=== PATIENT | female | born 1970 | race Caucasian/White ===

== ENCOUNTER 2017-05-15 10:13 | Emergency (ER) | payer BC ==
[2017-05-15] MEDS ORDERED: NS 0.9% 1000 ML* 1,000 ML IV ONE (10:57)
[2017-05-15 11:01] LABS: Urine Appearance Clear; Urine Blood 2+ (Negative); Urine Color Yellow; Urine Ketones Negative (Negative); Urine Protein Negative (Negative); Urine Specific Gravity 1.021 (1.010-1.030); Urine Urobilinogen Negative (Negative)
[2017-05-15 11:37] LABS: ABS Basophils 0 10^3/ul (0-0.2); ABS Eosinophils 0 10^3/ul (0-0.6); ABS Lymphocytes 0.8 10^3/ul (1.0-4.8); ABS Monocytes 0.3 10^3/ul (0-0.8); ABS Neutrophils 8.5 10^3/ul (1.5-7.7); ABS Nucleated RBC 0 10^3/ul; Eosinophil % 0.1 % (0-6); Hematocrit 41 % (35-47); Hemoglobin 14.2 g/dl (12.0-16.0); Lymphocyte % 8.4 % (25-47); Mean Corpuscular HGB Conc 34 g/dl (31-36); Mean Corpuscular Hemoglobin 31 pg (27-31); Mean Corpuscular Volume 89 fL (80-97); Mean Platelet Volume 9 um3 (7.4-10.4); Nucleated Red Blood Cells % 0.1; Platelet Count 200 10^3/ul (150-450); Red Blood Count 4.63 10^6/ul (4.0-5.4); Red Cell Distribution Width 14 % (10.5-15); White Blood Count 9.6 10^3/ul (3.5-10.8)
[2017-05-15 11:55] LABS: EGFR Non-African American 86.5 (>60)
--- NOTE | 2017-05-15 13:21 | RAD ---
INDICATION: Left-sided pelvic pain. COMPARISON: There are no prior studies available for comparison. TECHNIQUE: Multiple real-time transvaginal and transabdominal images of the pelvis were obtained. FINDINGS: The uterus is normal in size, shape and echogenicity. The uterus measured 8.5 x 4.3 x 6.1 cm. The endometrial echo measured 0.3 cm in thickness. There are couple hypodense lesions with the uterus. The largest measures 1.8 x 1.3 1.5 cm in size consistent with small leiomyomas. The right ovary measured 2.5 x 1.5 x 1.6 cm. The left ovary measured 2.3 x 0.8 x 1.5 cm. There is a small 1.4 x 1.0 x 0.9 cm follicular cyst within the right ovary. The Doppler ultrasound evaluation of both ovaries is limited with picking up clean Doppler signals in either ovary. There is a small amount of free intraperitoneal fluid in the cul-de-sac. IMPRESSION: 1. THE DOPPLER EVALUATION OF THE OVARIES IS VERY LIMITED ON BOTH SIDES. THE OVARIES ARE NORMAL IN SIZE. 2. SMALL LEIOMYOMAS. 3. SMALL AMOUNT OF FREE INTRAPERITONEAL FLUID
[2017-05-15] MEDS ORDERED: Iohexol 300* (CONTRAST) 10 ML SDV IV ONE (14:00)
--- NOTE | 2017-05-15 14:39 | RAD ---
CLINICAL HISTORY: Left lower quadrant pain COMPARISON: None TECHNIQUE: Multiple contiguous axial CT scans were obtained of the abdomen and pelvis, without intravenous contrast enhancement. Coronal and sagittal multiplanar reformations are submitted for review. Oral contrast was not administered. FINDINGS: The study is limited by the lack of intravenous contrast. This limits evaluation of the solid organs and vasculature. LUNG BASES: The lung bases are clear. LIVER: There is a 1.5 cm low-attenuation lesion of the right lobe of liver centered on axial image 62, measuring 40 Hounsfield units. BILE DUCTS: There is no intrahepatic or extrahepatic biliary dilatation. GALLBLADDER: The gallbladder is normal, without pericholecystic inflammatory change. PANCREAS: The pancreas is normal, without mass or ductal dilatation. SPLEEN: Normal in size and appearance. UPPER GI TRACT: Evaluation of the gastrointestinal tract is limited by incomplete gastric distention. The upper GI tract is unremarkable. SMALL BOWEL AND MESENTERY: The small bowel is normal in contour, course, and caliber. There is no obstruction or dilatation. COLON: There is mucosal thickening with stranding of the pericolic fat along the descending colon. ADRENALS: Normal bilaterally. KIDNEYS: A simple parapelvic cyst is noted on the right. There is no appreciable hydronephrosis or nephrolithiasis. BLADDER: The bladder is incompletely distended but is grossly normal. PELVIC ORGANS: The uterus and adnexa are grossly normal for technique. There is effacement of fluid within the pelvic cul-de-sac. AORTA: The aorta is normal. IVC: Unremarkable LYMPH NODES: There is no lymphadenopathy by size criteria. ABDOMINAL WALL: There is no evidence for abdominal wall hernia. BONES AND SOFT TISSUES: Degenerative changes are noted of the spine. OTHER: None IMPRESSION: 1. MUCOSAL THICKENING AND INFLAMMATORY CHANGE OF THE DESCENDING COLON SUGGESTIVE OF COLITIS. 2. TRACE AMOUNT OF FLUID WITHIN THE PELVIC CUL-DE-SAC. 3. THERE IS A 1.5 CM LOW-ATTENUATION LESION OF THE RIGHT LOBE OF LIVER. THIS IS INCOMPLETELY EVALUATED ON THE CURRENT EXAMINATION. RECOMMEND CORRELATION WITH MULTIPHASE CONTRAST-ENHANCED LIVER PROTOCOL CT, CONTRAST-ENHANCED MRI OF THE ABDOMEN, OR ULTRASOUND OF THE ABDOMEN IN THE NONACUTE SETTING.
[2017-05-15 15:15] VITALS: BP 147/72
--- NOTE | 2017-05-16 09:10 | ED ---
Progress - Progress Note Progress Note: Pt's stool occult blood test is (+). Pt was dx'd w/ colitis and pt was offered medication. Per note, she declined and report indicates she is pt of Dr. Porras and she plans to f/u there. No concern for acute GI bleed at time of visit or d/ c. No change in plan at this time. Course/Dx - Diagnoses Provider Diagnoses: Abdominal pain
--- NOTE | 2017-05-16 16:44 | ED ---
Michael Moreira Angela, scribed for Juan Jane MD on 05/15/17 at 1055 . Abdominal Pain/Female - HPI Summary HPI Summary: This pt is a 47 y/o female presenting to [facility] c/o lower abd pain that began at 10:30 this morning. Pt notes she also had episodes of diarrhea with bloody stools. She describes a small amount of right red blood. Pt rates her pain 4 or 5 out of 10 in severity. She denies dysuria, flank pain, nausea, vomiting. PMHx: kidney stones, IBS. Pt had an US on 04/15/[address] Cotton that resulted negative. - History of Current Complaint Chief Complaint: EDAbdPain Stated Complaint: ABD PAIN Time Seen by Provider: 05/15/17 10:34 Hx Obtained From: Patient Onset/Duration: Lasting Hours, Still Present Timing: Hours Severity Currently: Moderate Pain Intensity: 4 Pain Scale Used: 0-10 Numeric Location: Other - pelvic Radiates: No Aggravating Factor(s): Nothing Alleviating Factor(s): Nothing Associated Signs and Symptoms: Positive: Blood in Stool, Diarrhea. Negative: Urinary Symptoms, Nausea, Vomiting Allergies/Adverse Reactions: Allergies Allergy/AdvReac Type Severity Reaction Status Date / Time Iodine and Iodide Containing Allergy Intermediate Hives Verified 05/15/17 14:19 Produc MS Erythromycin AdvReac Severe Nausea And Verified 05/15/17 14:18 [Erythromycin] Vomiting PMH/Surg Hx/FS Hx/Imm Hx Endocrine/Hematology History: Reports: Hx Anemia - WITH FREQUENT PERIODS History: Reports: Hx Kidney Stones - PAST NONE KNOWN NOW Sensory History: Reports: Hx Contacts or Glasses - DRIVING ONLY Opthamlomology History: Reports: Hx Contacts or Glasses - DRIVING ONLY Psychiatric History: Reports: Hx Anxiety - OK ON DAILY MED Denies: Hx Depression - Cancer History Hx Chemotherapy: No Hx Radiation Therapy: Yes - [facility] - Surgical History Surgery Procedure, Year, and Place: 1973 RT EAR REPAIR NO OPENING [facility] Hx Anesthesia Reactions: No Infectious Disease History: No Infectious Disease History: Denies: Traveled Outside the [place] in Last 30 Days - Family History Family History: Negative FHx of kidney stones. - Social History Alcohol Use: None Substance Use Type: Reports: None Smoking Status (MU): Never Smoked Tobacco Review of Systems Negative: Fever, Chills Gastrointestinal: Other - bloody stools Positive: Abdominal Pain, Diarrhea. Negative: Vomiting, Nausea Negative: dysuria, flank pain, hematuria Skin: Negative Neurological: Negative All Other Systems Reviewed And Are Negative: Yes Physical Exam - Summary Physical Exam Summary: VITAL SIGNS: Reviewed. GENERAL: Patient is a well-developed and nourished female who is lying comfortable in the stretcher. Patient is not in any acute respiratory distress. HEAD AND FACE: Normocephalic and atraumatic. EYES: PERRLA, EOMI x 2, No injected conjunctiva. EARS: Hearing grossly intact. Ear canals and tympanic membranes are WNL. MOUTH: Oropharynx within normal limits. NECK: Supple, trachea is midline, no adenopathy, no JVD. CHEST: Symmetric, no tenderness at palpation LUNGS: Clear to auscultation bilaterally. No wheezing or crackles. CVS: RRR, S1 and S2 present, no murmurs or gallops appreciated. ABDOMEN: Soft. No signs of distention. Positive bowel sounds. No rebound no guarding, and no masses palpated. No abdominal bruit or pulsations. Pt has left pelvis area tenderness. RECTAL EXAM: EXTREMITIES: FROM in all major joints, no edema, no cyanosis or clubbing. NEURO: Alert and oriented x 3. No acute neurological deficits. Speech is normal. SKIN: Dry and warm Triage Information Reviewed: Yes Vital Signs On Initial Exam: Initial Vitals Temp Pulse Resp BP Pulse Ox 98.5 F 108 17 154/78 96 05/15/17 10:26 05/15/17 10:26 05/15/17 10:26 05/15/17 10:26 05/15/17 10:26 Vital Signs Reviewed: Yes Diagnostics - Vital Signs Vital Signs Temp Pulse Resp BP Pulse Ox 05/15/17 10:26 98.5 F 108 17 154/78 96 - Laboratory Result Diagrams: 05/15/17 11:20 05/15/17 11:20 Lab Statement: Any lab studies that have been ordered have been reviewed, and results considered in the medical decision making process. - CT Abdomen/Pelvis CT CT Interpretation: Positive (See Comments) - IMPRESSION: 1. Mucosal thickening and inflammatory change of the descending colon suggestive of colitis. 2. Trace amount of fluid within the pelvic cul-de-sac. 3. There is a 1.5 cm low- attenuation lesion of the right lober of liver. This is incompletely evaluated on the current examination. Recommend correlation with multiphase contrast- enhanced liver protocol CT, contrast-enhanced MRI of the abdomen, or ultrasound of the abdomen in the nonacute setting. Dr. Jane has reviewed this radiology report . CT Interpretation Completed By: Radiologist - Ultrasound No standard instances Ultrasound Interpretation: Positive (See Comments) - US Transvaginal IMPRESSION : 1. The doppler evaluatoin of the ovaries is very limited on both sides. The ovaries are normal in size. 2. Small leiomyomas. 3. Small amount of free intraperitoneal fluid. Dr. Jane has reviewed the radiology report. Ultrasound Interpretation Completed By: Radiologist Abdominal Pain Fem Course/Dx - Course Course Of Treatment: This pt is a 47 y/o female presenting to [facility] c/o lower abd pain that began at 10:30 this morning. Pt notes she also had episodes of diarrhea with bloody stools. She describes a small amount of right red blood. Pt rates her pain 4 or 5 out of 10 in severity. She denies dysuria, flank pain , nausea, vomiting. PMHx: kidney stones, IBS. Pt had an US on 04/15/[address] Cotton that resulted negative. Test results without any significant abnormalities. Urinalysis is negative for UTI. Since the pt was complaining of left pelvic pain, I decide to do pelvic US. Pelvic US: 1. The doppler evaluatoin of the ovaries is very limited on both sides. The ovaries are normal in size. 2. Small leiomyomas. 3. Small amount of free intraperitoneal fluid. Since the ultrasound report is normal, I decided to do an abdomen/pelvis CT to rule out kidney stones or diverticulitis. Abdomen/pelvis CT: 1. Mucosal thickening and inflammatory change of the descending colon suggestive of colitis. 2. Trace amount of fluid within the pelvic cul-de-sac. 3. There is a 1.5 cm low-attenuation lesion of the right lober of liver. This is incompletely evaluated on the current examination. Recommend correlation with multiphase contrast-enhanced liver protocol CT, contrast-enhanced MRI of the abdomen, or ultrasound of the abdomen in the nonacute setting. The CT shows the pt has colitis. I offered the pt pain medications and she declines. Pt will follow up with GI and she has already been established with Dr. Porras. Therefore she will be discharged to home with follow up from Dr. Porras. Pt is hemodynamically stable, alert and oriented x3. Pt is ambulating out of the ED. - Diagnoses Provider Diagnoses: Abdominal pain Discharge - Discharge Plan Condition: Stable Disposition: HOME Patient Education Materials: Abdominal Pain (ED) Referrals: Gibson Chicas MD [Primary Care Provider] - 3 Days Additional Instructions: Please follow up with your primary care provider. RETURN TO THE ED FOR ANY WORSENING SYMPTOMS. The documentation as recorded by the Michael john Angela accurately reflects the service I personally performed and the decisions made by Buck miles Walter, MD.
== END 2017-05-15 15:13 | disposition home or self-care (01) ==
LOC: ED 10:13
DX: R10.9 Unspecified abdominal pain (principal)
CPT/HCPCS: 36415; 74176; 76830; 80053; 81003; 81015; 82272; 83690; 84702; 85025; 86140; 87086; 99283

== ENCOUNTER 2018-05-17 15:11 | Emergency (ER) | payer BC ==
[2018-05-17] MEDS ORDERED: Ondansetron INJ* 2 MG/ML VIAL IV ONE (15:40)
[2018-05-17] MEDS ORDERED: NS 0.9% 1000 ML** 2,000 ML IV ONE (15:40)
[2018-05-17] MEDS ORDERED: Morphine INJ* 10 MG/ML 1 ML CARPUJECT IV ONE (15:40)
[2018-05-17] MEDS ORDERED: Ketorolac INJ* 30 MG/ML 1 ML VIAL IV ONE (15:40)
[2018-05-17] MEDS ORDERED: Ketorolac INJ* 30 MG/ML 1 ML VIAL ONE (15:45)
[2018-05-17] MEDS ORDERED: Ondansetron INJ* 2 MG/ML VIAL ONE (15:45)
[2018-05-17] MEDS ORDERED: Morphine VIAL* 4 MG/ML VIAL (1 ml vial) ONE (15:46)
--- NOTE | 2018-05-17 15:46 | ED ---
Abdominal Pain/Female - HPI Summary HPI Summary: 48 year old F presenting to [facility] from [facility] accompanied by daughter's female best friend who is an DEVELOPMENT ARCHITECT, and later her , with a chief complaint of right flank pain radiating to RLQ for one week, worse since this morning. The patient rates the pain 10/10 in severity. Symptoms aggravated by nothing. Symptoms alleviated by nothing. Patient reports burning with urination , vomiting undigested food x1, nausea. Patient denies fever. 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 Patient was dx with UTI at [facility] and sent to ED for pain control. Patient has hx kidney stones, always on the left side per pt. Her last kidney stone was a couple of years ago. Patient has surgical hx stent for her kidney stones. Patient sees Dr. Cotton, urology. She had US done in February 2018 in his office and states he identified renal calculi on the left, but did not state there were any renal calculi on the right. Pt believes she forms uric acid stones. Patient is in menopause. Vital signs at triage: HR 111 bpm, BP 138/97. - History of Current Complaint Chief Complaint: EDFlankPain Stated Complaint: FLANK PAIN Hx Obtained From: Patient Hx Last Menstrual Period: patient is in menopause Onset/Duration: Lasting Weeks - 1, Still Present, Worse Since - this morning Timing: Constant Severity Initially: Mild Severity Currently: Severe Pain Intensity: 10 Pain Scale Used: 0-10 Numeric Location: Flank - right Radiates: Yes Radiates to: RLQ Character: Sharp Aggravating Factor(s): Nothing Alleviating Factor(s): Nothing Associated Signs and Symptoms: Positive: Other: - burning with urination, vomiting undigested food x1, nausea. Negative: Fever Allergies/Adverse Reactions: Allergies Allergy/AdvReac Type Severity Reaction Status Date / Time Iodine and Iodide Containing Allergy Intermediate Hives Verified 05/17/18 15:43 Produc erythromycin base Allergy Nausea And Verified 05/17/18 15:43 Vomiting PMH/Surg Hx/FS Hx/Imm Hx Previously Healthy: No Endocrine/Hematology History: Reports: Hx Thyroid Disease, Hx Anemia Denies: Hx Diabetes Cardiovascular History: Denies: Hx Hypertension History: Reports: Hx Kidney Stones Sensory History: Reports: Hx Contacts or Glasses - DRIVING ONLY Opthamlomology History: Reports: Hx Contacts or Glasses - DRIVING ONLY Psychiatric History: Reports: Hx Anxiety, Hx Depression - Cancer History Cancer Type, Location and Year: [facility], 2001, Dr. Engel Hx Chemotherapy: No Hx Radiation Therapy: Yes - [facility] - Surgical History Surgery Procedure, Year, and Place: 1973 RT EAR REPAIR NO OPENING [facility]. Kidney stone stent Hx Anesthesia Reactions: No Infectious Disease History: No Infectious Disease History: Denies: Traveled Outside the [place] in Last 30 Days - Family History Family History: Negative FHx of kidney stones, kidney failure, dialysis - Social History Lives: With Family Alcohol Use: None Hx Substance Use: No Substance Use Type: Reports: None Hx Tobacco Use: No Smoking Status (MU): Never Smoked Tobacco Review of Systems Negative: Fever Cardiovascular: Negative Respiratory: Negative Positive: Vomiting, Nausea Positive: burning, dysuria, flank pain - right Musculoskeletal: Negative Skin: Negative Neurological: Negative Psychological: Normal All Other Systems Reviewed And Are Negative: Yes Physical Exam - Summary Physical Exam Summary: Appearance: Well-appearing, moderate pain distress, well-nourished Skin: Warm, color reflects adequate perfusion, dry Head: Normal Head/Face inspection, atraumatic Eyes: Conjunctiva clear ENT: Normal inspection Neck: Supple, no nodes, no JVD Respiratory: Lungs clear, normal breath sounds, no respiratory distress Cardio: RRR, No murmur, pulses normal, brisk capillary refill Abdomen: Soft, nondistended, no masses. R CVAT, RLQ on palpation, no guarding, no rebound Bowel sounds: Present Musculoskeletal: Strength Intact/ROM intact, no calf tenderness, no edema. Psychological: Normal Neuro: Alert, muscle tone normal, no focal deficit Triage Information Reviewed: Yes Vital Signs On Initial Exam: Initial Vitals Temp Pulse Resp BP Pulse Ox 98.9 F 111 20 138/97 99 05/17/18 15:18 05/17/18 15:18 05/17/18 15:18 05/17/18 15:18 05/17/18 15:18 Vital Signs Reviewed: Yes Diagnostics - Vital Signs Vital Signs Temp Pulse Resp BP Pulse Ox 05/17/18 15:18 98.9 F 111 20 138/97 99 - Laboratory Result Diagrams: 05/17/18 16:24 05/17/18 16:24 Lab Statement: Any lab studies that have been ordered have been reviewed, and results considered in the medical decision making process. - Radiology Abdomen Radiology Interpretation Completed By: ED Physician Summary of Radiographic Findings: No definite renal calculi on the right. Large amount of stool. Pending official report. - Ultrasound No standard instances Ultrasound Interpretation Completed By: Radiologist Summary of Ultrasound Findings: MILD TO MODERATE RIGHT HYDRONEPHROSIS. ED physician has reviewed this report. Re-Evaluation - Re-Evaluation First Eval Re-Evaluation Time: 16:40 Change: Improved Comment: Patient's pain is controlled. Patient's face is flushed. She is updated on her US results. Second Eval Re-Evaluation Time: 18:10 Change: Unchanged Comment: Discussed disposition plan. Told her that we are waiting for Dr. Cotton to call back. Third Eval Re-Evaluation Time: 18:23 Change: Improved Comment: Patient's pain is controlled. She is ready to go home. She agrees to see Dr. Cotton tomorrow in his office. She declines the prescription for Percocet. Fourth Eval Re-Evaluation Time: 21:54 Change: Improved Comment: Patient's pain is relieved. She thinks she may have passed stone because pain is so much better.Did not strain her urine, so did not recover a stone, but thinks she saw it in the toilet. With the next time voiding as I waited outside her room, pt thought she saw 3 dark flecks in the toilet, which I also saw. Uncertain if they were renal calculi, as they were so small. Abdominal Pain Fem Course/Dx - Course Course Of Treatment: Reviewed nurses note. Patient medications reviewed this visit. Allergies noted. High blood pressure noted. Renal US showed MILD TO MODERATE RIGHT HYDRONEPHROSIS. In ED course, patient was given Toradol, Morphine , and Zofran. Per Dr. Cotton, patient's urologist, patient can be discharged with ibuprofen and Percocet. He recommends getting KUB and urine for culture. He will see patient in office tomorrow 0800 with full bladder. Patient will be discharged home with follow up from Dr. Cotton, urology, in his office tomorrow. Patient was instructed to return to ED for new or worsening symptoms. She is agreeable with this plan. - Diagnoses Differential Diagnosis: Positive: Appendicitis, Constipation, Gall Bladder Disease, Pancreatitis, Renal Colic, Urinary Tract Infection Provider Diagnoses: Renal calculi, Hydronephrosis, right, Acute right flank pain, Right lower quadrant abdominal pain - Provider Notifications Discussed Care Of Patient With: Robbie Cotton Time Discussed With Above Provider: 18:14 Instructed by Provider To: Other - Dr. Cotton, patient's urologist, advises to discharge patient with ibuprofen and Percocet. He recommends getting KUB and urine for culture. He will see patient in office tomorrow 0800 with full bladder. Discharge - Sign-Out/Discharge Documenting (check all that apply): Patient Departure - Discharge Patient Received Moderate/Deep Sedation with Procedure: No - Discharge Plan Condition: Stable Disposition: HOME Patient Education Materials: Kidney Stones (ED), Hydronephrosis (ED) Referrals: Gibson Chicas MD [Primary Care Provider] - Robbie Cotton MD [Medical Doctor] - 1 Day Additional Instructions: Strain all of your urine. You may take ibuprofen for pain. You declined percocet at this time. See Dr. Cotton at 0800 and arrive with a full bladder. Return to the emergency department for new or worsening symptoms - Billing Disposition and Condition Condition: STABLE Disposition: Home - Attestation Statements Document Initiated by Scribe: Yes Documenting Scribe: Julieth Harmon Provider For Whom Melle is Documenting (Include Credential): Judy Collazo MD Scribe Attestation: Julieth Moreira, scribed for Judy Collazo MD on 05/20/18 at 2158. Scribe Documentation Reviewed: Yes Provider Attestation: The documentation as recorded by the Julieth john accurately reflects the service I personally performed and the decisions made by me, Judy Collazo MD Status of Scribe Document: Viewed
[2018-05-17] MEDS: Morphine VIAL* 4 MG/ML VIAL (1 ml vial) IV ONE ×2 (15:54→16:03)
[2018-05-17] MEDS ORDERED: Morphine VIAL* 10 MG/ML 1 ML VIAL IV ONE (16:01)
[2018-05-17 16:33] LABS: ABS Basophils 0 10^3/ul (0-0.2); ABS Eosinophils 0.1 10^3/ul (0-0.6); ABS Lymphocytes 0.8 10^3/ul (1.0-4.8); ABS Monocytes 0.3 10^3/ul (0-0.8); ABS Neutrophils 8.8 10^3/ul (1.5-7.7); ABS Nucleated RBC 0 10^3/ul; Eosinophil % 0.7 %; Hematocrit 38 % (35-47); Hemoglobin 12.7 g/dl (12.0-16.0); Lymphocyte % 7.9 %; Mean Corpuscular HGB Conc 34 g/dl (31-36); Mean Corpuscular Hemoglobin 30 pg (27-31); Mean Corpuscular Volume 90 fL (80-97); Mean Platelet Volume 8.2 fL (7.4-10.4); Nucleated Red Blood Cells % 0; Platelet Count 192 10^3/ul (150-450); Red Blood Count 4.23 10^6/ul (4.00-5.40); Red Cell Distribution Width 14 % (10.5-15)
[2018-05-17 16:50] LABS: Albumin 4.4 g/dL (3.2-5.2); Albumin/Globulin Ratio 1.8 (1-3); BUN/Creatinine Ratio 19.7 (8-20); C Reactive Protein 1.46 mg/L (<8.01); EGFR African American 97.9 (>60); EGFR Non-African American 80.9 (>60); Globulin 2.5 g/dL (2-4); Potassium 3.7 mmol/L (3.5-5.0); Total Bilirubin 0.3 mg/dL (0.2-1.0); Total Protein 6.9 g/dL (6.4-8.9)
[2018-05-17 17:28] LABS: Urine Appearance Clear; Urine Bacteria Absent (Absent); Urine Bilirubin Negative (Negative); Urine Blood 2+ (Negative); Urine Color Straw; Urine Glucose Negative (Negative); Urine Ketones Negative (Negative); Urine Nitrite Negative (Negative); Urine Protein Negative (Negative); Urine Red Blood Cell 3+(>10/hpf) (Absent); Urine Urobilinogen Negative (Negative); Urine White Blood Cell 2+(11-20/hpf) (Absent)
[2018-05-17] MEDS ORDERED: Ibuprofen TAB* 800 MG PO ONE (18:22)
[2018-05-17 22:20] VITALS: BP 133/77
== END 2018-05-17 22:20 | disposition home or self-care (01) ==
LOC: ED 15:11
DX: N13.2 Hydronephrosis with renal and ureteral calculous obstruction (principal); Z87.442 Personal history of urinary calculi; R10.31 Right lower quadrant pain; Z88.1 Allergy status to other antibiotic agents; Z88.3 Allergy status to other anti-infective agents
CPT/HCPCS: 36415; 74018; 76775; 80053; 81003; 81015; 83605; 85025; 86140; 87077; 87086; 87186; 96374; 96375; 99283; A9270-GY; J1885; J2270; J2405